=== PATIENT | female | born 1960 | race Caucasian/White ===

== ENCOUNTER 2016-12-18 09:33 | Inpatient (IN) | payer BC, OTHER ==
[~2016-12-18] VITALS: Ht 152.4 cm; Wt 75.7 kg
[~2016-12-18 09:33] MED LIST: RABE20TA5 PO
[2016-12-18 09:35] VITALS: BP_SYST 132
--- NOTE | 2016-12-18 09:38 | NUR ---
Pt report received from ONI [place]. Pt c/o intermittent C/P that radiates down Left arm x 1 week. Pt states that she also feels hoarse during these occurences. No SOB.
--- NOTE | 2016-12-18 09:38 | NUR ---
Arrived as walk in with 5/10 chest tightness since Tuesday. States that she has had cough and changes in her voice. Placed in room 2. Placed on desk monitor, blood pressure machine and pulse oximeter. To gown for exam. Side rails up. Report given to Niall BUNN.
[2016-12-18] MEDS ORDERED: NITROGLYCERIN 1 INCH (GM) OINT. TP ONE (09:45)
[2016-12-18] MEDS ORDERED: ASPIRIN 81 MG TAB.CHEW PO ONE (09:45)
--- NOTE | 2016-12-18 09:45 | NUR ---
Dr. Krueger at bedside to assess pt.
[2016-12-18 10:08] LABS: BASOPHILS % (AUTO) 0.7 % (0.0-2.0); EOSINOPHILS # (AUTO) 0.1 K/uL (0.0-0.4); EOSINOPHILS % (AUTO) 1.7 % (0.0-4.0); HEMATOCRIT 41.2 % (36-48); HEMOGLOBIN 13.4 g/dL (12.0-16.0); LYMPHOCYTES # (AUTO) 1.3 K/uL (1.0-5.5); LYMPHOCYTES % (AUTO) 23.7 % (20.5-51.5); MEAN CORPUSCULAR HEMOGLOBIN 28 pg (27-31); MEAN CORPUSCULAR HGB CONC 33 % (32-36); MEAN CORPUSCULAR VOLUME 87 fL (79.0-98.0); MONOCYTES # (AUTO) 0.3 K/uL (0.0-1.0); MONOCYTES % (AUTO) 5.7 % (1.7-9.3); NEUTROPHILS # (AUTO) 3.9 K/uL (1.8-7.7); NEUTROPHILS % (AUTO) 68.2 % (40.0-70.0); PLATELET COUNT (AUTO) 344 K/uL (130-430); RED BLOOD CELL COUNT(AUTO) 4.76 MIL/uL (4.2-6.2); RED CELL DISTRIBUTION WIDTH 11.8 % (9.0-15.0); WHITE BLOOD COUNT (AUTO) 5.6 K/uL (4.8-10.8)
[2016-12-18 10:12] LABS: CALCIUM 8.9 mg/dL (8.4-11.0); CREATININE 0.65 mg/dL (0.55-1.30); POTASSIUM 3.6 mmol/L (3.5-5.1)
[2016-12-18 10:15] LABS: INR 0.9 (0.8-1.2); PROTHROMBIN TIME 9.6 SECS (9.5-12.5)
[2016-12-18 10:17] LABS: ALBUMIN 3.6 g/dL (3.4-4.8); TOTAL BILIRUBIN 0.3 mg/dL (0.0-1.0)
[2016-12-18 10:55] LABS: BILIRUBIN,URINE NEGATIVE (NEGATIVE); BLOOD, URINE NEGATIVE (NEGATIVE); CLARITY/URINE CLEAR (CLEAR); COLOR,URINE YELLOW (YELLOW); GLUCOSE,URINE NEGATIVE (NEGATIVE); KETONES,URINE NEGATIVE (NEGATIVE); LEUKOCYTE ESTERASE ,URINE NEGATIVE (NEGATIVE); NITRITE, URINE NEGATIVE (NEGATIVE); PROTEIN URINE NEGATIVE (NEGATIVE); UROBILINOGEN,URINE 0.2 (0.2-1.0)
--- NOTE | 2016-12-18 11:04 | NUR ---
Dr. Krueger at bedside to discuss POC.
[2016-12-18] MEDS ORDERED: MORPHINE 2 MG/ML INJ. SYRINGE IVP ONE (11:15)
[2016-12-18] MEDS ORDERED: DIPHENHYDRAMINE INJ 50 MG/ML VIAL IVP ONE (11:15)
--- NOTE | 2016-12-18 11:30 | NUR ---
Pt denies c/o pain or discomfort. Family member at bedside.
[2016-12-18] MEDS ORDERED: MORPHINE 2 MG/ML INJ. SYRINGE IVP PRN ×2 (11:45→13:45)
[2016-12-18] MEDS ORDERED: NITROGLYCERIN 0.4 MG TAB.SUBL SL PRN (11:45)
[2016-12-18] MEDS ORDERED: ACETAMINOPHEN 325 MG TABLET PO PRN (11:45)
--- NOTE | 2016-12-18 11:55 | NUR ---
Patient will be admitted to care of Dr. Dong. Admitted to Tele unit. Will go to room 100B. Belongings list completed. Summary report printed. Bedside report given to ONI Schneider.
--- NOTE | 2016-12-18 12:03 | NUR ---
ADMISSION NOTE Received patient from ER via rocael, received report from KENNA BUNN. Patient admitted with diagnosis of CHEST PAIN TO R/O M.I.. Patient oriented to hospital routine, call light, toileting and safety-patient verbalized understanding.
[2016-12-18 12:10] VITALS: BP_SYST 113
[2016-12-18] MEDS ORDERED: PANTOPRAZOLE SODIUM 40 MG TAB PO ONE (12:15)
--- NOTE | 2016-12-18 12:16 | NUR ---
CONSULTATION PAGED REASON FOR CONSULTATION:CHEST PAIN WAS CONSULT CALLED?Y PERSON WHO WAS NOTIFIED:MARY CONSULTING PHYSICIAN:JAREN HUMPHREY (ALLISON KHOURY DINING ROOM HOST) CELL TENDER SPECIALTY:CARDIO CELL TENDER PHONE NUMBER:[phone] ORDERING PHYSICIAN:NIKOLE LEONARD
[2016-12-18] MEDS ORDERED: VALS80TA2 PO (12:32)
[2016-12-18] MEDS ORDERED: L.RH1CAP PO (12:32)
[2016-12-18] MEDS ORDERED: LORA10TA7 PO (12:32)
[2016-12-18] MEDS ORDERED: METO25TA3 PO (12:32)
[2016-12-18] MEDS ORDERED: SERT50TA12 PO (12:32)
--- NOTE | 2016-12-18 13:00 | NUR ---
RECEIVED PT FROM ADMIT NURSE PT STABLE ON ROOM AIR WITH NO COMPLAINT OF CHEST PAIN OR PRESSURE. I EDUCATED PT ON UNIT SAFETY AND SHE DEMONSTRATED THE ABILITY TO USE THE CALL LIGHT. PT AMBULATORY: NO FALL RISK. PT'S IS AT BEDSIDE. PT ASKED TO BE ALLOWED TO REST, SO I TURNED OFF THE LIGHTS AND CLOSED THE DOOR.
--- NOTE | 2016-12-18 13:15 | NUR ---
DR. WEI AT BEDSIDE
[2016-12-18] MEDS ORDERED: FLUTICASONE PROPIONATE 50 mCg/SPRAY 16 GM NS SCH ×2 (13:45→16:00)
[2016-12-18] MEDS ORDERED: ALPRAZolam 0.25 MG TABLET PO PRN (13:45)
[2016-12-18] MEDS: LORATADINE 10 MG TABLET PO SCH (13:45)
[2016-12-18] MEDS: SERTRALINE HCL 50 MG TABLET PO SCH (13:45)
[2016-12-18] MEDS ORDERED: CALCIUM CARBONATE 500 MG/ TAB.CHEW PO PRN (13:45)
--- NOTE | 2016-12-18 14:00 | NUR ---
SID DELAYED - WAITING FOR PHARMACY TO DELIVER IT
[2016-12-18] MEDS ORDERED: LORATADINE 10 MG TABLET PO ONE (15:00)
[2016-12-18] MEDS ORDERED: SERTRALINE HCL 50 MG TABLET PO ONE (15:00)
[2016-12-18] MEDS: PANTOPRAZOLE SODIUM 40 MG TAB PO SCH (15:00)
[2016-12-18 15:27] VITALS: BP_SYST 112
--- NOTE | 2016-12-18 16:47 | NUR ---
PAGED PAGED NIKOLE LEONARD AT [phone] SPOKE WITH BRUNA.
--- NOTE | 2016-12-18 17:00 | NUR ---
PT EDUCATION: CHHAYA I EXPLAINED THE STRESS TEST/LEXISCAN PROCEDURE WHICH IS SCHEDULED FOR TOMORROW AT 0930. PT STATED UNDERSTANDING OF NPO STATUS AFTER MIDNIGHT TONIGHT AND THAT SHE WOULD NOT BE GIVEN HER 0900 HTN MEDICATIONS UNTIL AFTER THE PROCEDURE EXCEPT IN THE CASE OF EMERGENCY HYPERTENSION
--- NOTE | 2016-12-18 18:30 | NUR ---
RN CLOSING NOTE PT IS RESTING IN BED WITH NO COMPLAINT OF PAIN. IV IS PATENT AND SALINE LOCKED, DRESSING DRY AND INTACT. PT STATED ALL HER NEEDS WERE MET DURING THE SHIFT AND THAT SHE DID NOT NEED ANYTHING AT THIS TIME.
--- NOTE | 2016-12-18 20:00 | NUR ---
Initial Notes Received patient resting in bed, awake, alert, oriented, family at bedside. Patient denies any acute distress or pain at this time. Vital signs stable. Breathing is even and unlabored on room air. IV site patent/clean/dry. Educated patient regarding use of call light for assistance and fall precautions, patient verbalized understanding. Patient verbalized understanding of NPO status post midnight for test in AM. Needs addressed. Call light in hand, will continue to monitor.
[2016-12-18 20:07] VITALS: BP_SYST 122
[2016-12-18] MEDS ORDERED: METOPROLOL TARTRATE 50 MG TABLET PO SCH (21:00)
[2016-12-18] MEDS: METOPROLOL TARTRATE 25 MG TABLET PO SCH (21:19)
--- NOTE | 2016-12-18 22:00 | NUR ---
Rounds Patient resting in bed, awake. Patient denies any acute distress or pain at this time. Breathing is even and unlabored. Needs addressed. Call light in hand, will continue to monitor.
[2016-12-19] VITALS: BP_SYST 133
--- NOTE | 2016-12-19 | NUR ---
Rounds Patient resting with eyes closed, easily aroused. Patient denies any acute distress or pain. Reminded patient of NPO status, patient verbalized understanding. Patient denies any needs. Call light in hand, will continue to monitor.
--- NOTE | 2016-12-19 02:00 | NUR ---
Rounds Patient resting in bed with eyes closed. No acute distress noted, breathing is even and unlabored. Call light in hand, will continue to monitor.
[2016-12-19 02:30] LABS: C-REACTIVE PROTEIN QUANT 0.8 mg/dL (0-0.5)
--- NOTE | 2016-12-19 04:00 | NUR ---
Rounds Patient resting in bed with eyes closed, easily aroused. Patient denies any acute distress or pain at this time. Breathing is even and unlabored. Patient denies any needs. Call light in hand, will continue to monitor.
--- NOTE | 2016-12-19 06:30 | NUR ---
Closing Notes Patient resting in bed with eyes closed, easily aroused. Patient denies any acute distress or pain at this time. Breathing is even and unlabored. IV site patent/clean/dry, no S/S infection/infiltration noted. Needs addressed throughout shift. Call light in hand, fall precautions in place. Will continue to monitor for changes and safety, and endorse all patient care/needs to oncoming nurse. Patient remains NPO since midnight for stress test today.
[2016-12-19 08:00] VITALS: BP_SYST 126
--- NOTE | 2016-12-19 08:00 | NUR ---
RN OPENING NOTE PT PRESENTED WITH CHEST PAIN. SHE IS A/O X 4, SPEAKS FRISIAN, AND IS STABLE ON ROOM AIR WITH NO COMPLAINT OF CHEST PAIN OR PRESSURE. I EDUCATED PT ON UNIT SAFETY AND SHE DEMONSTRATED THE ABILITY TO USE THE CALL LIGHT. PT IS AMBULATORY AND IS NOT A FALL RISK. PT HAS BEEN NPO SINCE 0000 AND IS PREPARED FOR THE LEXISCAN SCHEDULED FOR EARLY THIS MORNING.
--- NOTE | 2016-12-19 08:10 | NUR ---
PT TRANSFERRED TO NUCLEAR MEDICINE FOR HER SCHEDULED LEXISCAN
[2016-12-19] MEDS ORDERED: REGADENOSON 0.4 MG/5 ML SYRINGE IVP ONE (09:00)
[2016-12-19] MEDS ORDERED: VALSARTAN 80 MG TABLET (DIOVAN) PO SCH (09:00)
[2016-12-19] MEDS ORDERED: ASPIRIN 81 MG TAB.CHEW PO SCH (09:00)
--- NOTE | 2016-12-19 10:00 | NUR ---
PT RETURNED FROM NUCLEAR MEDICINE VS STABLE ON ROOM AIRM 0900 PO MEDS ADMINISTERED AT THIS TIME
[2016-12-19] MEDS: PANTOPRAZOLE SODIUM 40 MG TAB PO SCH (10:11)
[2016-12-19] MEDS: METOPROLOL TARTRATE 25 MG TABLET PO SCH (10:12)
[2016-12-19] MEDS: SERTRALINE HCL 50 MG TABLET PO SCH (10:13)
[2016-12-19] MEDS: LORATADINE 10 MG TABLET PO SCH (10:13)
--- NOTE | 2016-12-19 10:50 | NUR ---
PT TRANSFERRED TO NUCLEAR MEDICINE FOR CONTINUATION OF LEXISCAN PROCEDURE.
--- NOTE | 2016-12-19 11:25 | NUR ---
PT RETURNED TO ROOM VS STABLE WITH NO COMPLAINT OF DISCOMFORT.
[2016-12-19 12:27] VITALS: BP_SYST 128
[2016-12-19] MEDS ORDERED: ATOR10TA68 PO (13:19)
[2016-12-19] MEDS ORDERED: ASA81 PO (13:19)
[2016-12-19] MEDS ORDERED: ALPR0.2583 PO (13:19)
--- NOTE | 2016-12-19 14:00 | NUR ---
RN ROUNDS PT IS SITTING UP IN BED TALKING TO HER FAMILY WITH NO COMPLAINT OF DISCOMFORT. I EXPLAINED THAT SHE WILL BE ABLE TO RETURN HOME TODAY IF HER LEXISCAN RESULTS ARE NEGATIVE.
[2016-12-19 15:20] VITALS: BP_SYST 129
[2016-12-19] MEDS ORDERED: METO50TA7 PO (15:47)
--- NOTE | 2016-12-19 16:05 | NUR ---
D/C Patient Patient given medication reconciliation form and D/C instructions. Exit Care provided. Patient verbalized understanding. MD discussed with patient the results and treatment provided. Ambulatory with steady gait for discharge to home. Patient in stable condition, ID band removed. IV catheter removed, intact and dressing applied, no active bleeding. Pt sent home with written prescriptions as well as a note to excuse her from work until 12/22/16. patient educated on follow-up appointment with Dr. Dong. All belongings sent with patient.
[2016-12-19 16:06] VITALS: BP_SYST 116
== END 2016-12-19 16:05 | disposition home or self-care (01) | DRG 313 ==
LOC: SED 09:33 → STU 11:40
PROVIDERS: ADMIT Internal Medicine; ATTEND Internal Medicine
DX: R07.89 Other chest pain (principal); I10 Essential (primary) hypertension; J30.9 Allergic rhinitis, unspecified; E78.5 Hyperlipidemia, unspecified; K21.9 Gastro-esophageal reflux disease without esophagitis; K58.9 Irritable bowel syndrome, unspecified; F41.9 Anxiety disorder, unspecified; M54.2 Cervicalgia; M79.602 Pain in left arm; E66.9 Obesity, unspecified; Z68.32 Body mass index [BMI] 32.0-32.9, adult; Z79.899 Other long term (current) drug therapy
CPT/HCPCS: 36415; 71010; 72050-TC; 80053; 80061; 81003; 81025; 83036; 83735-TC; 83880; 84484; 85025; 85610-TC; 86140; 93005; 93017; 93306; 96374; 96375; 99285; A9500; J1200; J2270; J2785

== ENCOUNTER 2019-05-10 09:17 | Emergency (ER) | payer OTHER ==
[~2019-05-10] VITALS: Ht 152.4 cm; Wt 77.1 kg
[~2019-05-10 09:17] MED LIST changes: +ALPR0.25 PO; +ASA81 PO; +ATOR10TA68 PO; +L.RH1CAP PO; +LORA10TA7 PO; +METO50TA7 PO; -RABE20TA5 PO; +SERT50TA12 PO; +VALS80TA2 PO
--- NOTE | 2019-05-10 09:25 | NUR ---
Patient to ER bed 4 to gown for evaluation. Side rails up.
[2019-05-10 09:33] VITALS: BP_SYST 120
--- NOTE | 2019-05-10 09:35 | NUR ---
Patient presented to ER C/O abdominal pain. Patient A&Ox4, ambulatory to ER, skin pink and warm, pain 6/10, nausea, fever, denies D/V. Patient states she has abdominal pain since yesterday, PT reports BM yesterday & today, no PO intake today, chills and nausea today. Patient states she has a hx of divirticulitis; self treated with prune juice yesterday. PT also report HX HTN & high cholesterol.
--- NOTE | 2019-05-10 09:40 | NUR ---
ERIC Curiel at bedside examining patient.
[2019-05-10] MEDS ORDERED: IBUPROFEN 600 MG TABLET PO ONE (09:45)
[2019-05-10] MEDS ORDERED: NACL 0.9% 1,000 ML IV ONE ×2 (09:45→11:45)
[2019-05-10] MEDS ORDERED: ONDANSETRON HCL 4 MG/2 ML VIAL IVP ONE (09:45)
--- NOTE | 2019-05-10 10:15 | NUR ---
# 20 gauge angiocath placed to right hand. Use of asceptic technique. Opsite placed over site. Blood return noted. Blood for lab drawn from site. Flushed with 10 cc of normal saline. No evidence of infiltration noted. Patient tolerated well. Medicated per MD orders. IVF infusing with no s/s of infiltration at this time. Will cont to monitor
--- NOTE | 2019-05-10 10:15 | NUR ---
Note undone in EDM - 05/10/19 at 1125 by SOFÍA # 20 gauge angiocath placed to left hand. Use of asceptic technique. Opsite placed over site. Blood return noted. Blood for lab drawn from site. Flushed with 10 cc of normal saline. No evidence of infiltration noted. Patient tolerated well. Medicated per MD orders. IVF infusing with no s/s of infiltration at this time. Will cont to monitor
--- NOTE | 2019-05-10 10:25 | NUR ---
Justice rivera in [facility] - 05/10/19 at 1038 by SDEDTD Patient to radiology via Tammy with staff.
--- NOTE | 2019-05-10 10:25 | NUR ---
Patient to radiology via [place] with staff.
[2019-05-10 10:37] LABS: BILIRUBIN,URINE NEGATIVE (NEGATIVE); BLOOD, URINE NEGATIVE (NEGATIVE); CLARITY/URINE CLEAR (CLEAR); COLOR,URINE YELLOW (YELLOW); GLUCOSE,URINE NEGATIVE (NEGATIVE); KETONES,URINE NEGATIVE (NEGATIVE); LEUKOCYTE ESTERASE ,URINE NEGATIVE (NEGATIVE); NITRITE, URINE NEGATIVE (NEGATIVE); PROTEIN URINE NEGATIVE (NEGATIVE); UROBILINOGEN,URINE 0.2 (0.2-1.0)
--- NOTE | 2019-05-10 10:37 | NUR ---
Justice rivera in [facility] - 05/10/19 at 1039 by SDEDTD Patient to bed 4 to [facility] for evaluation. Side rails up.
[2019-05-10 10:41] LABS: EOSINOPHILS % (AUTO) 0.2 % (0.0-4.0); HEMATOCRIT 39.4 % (36-48); HEMOGLOBIN 13.3 g/dL (12.0-16.0); LYMPHOCYTES # (AUTO) 0.2 K/uL (1.0-5.5); LYMPHOCYTES % (AUTO) 3.3 % (20.5-51.5); MEAN CORPUSCULAR HEMOGLOBIN 29 pg (27-31); MEAN CORPUSCULAR HGB CONC 34 % (32-36); MEAN CORPUSCULAR VOLUME 87 fL (79.0-98.0); MONOCYTES % (AUTO) 0.3 % (1.7-9.3); NEUTROPHILS # (AUTO) 6.9 K/uL (1.8-7.7); NEUTROPHILS % (AUTO) 96.2 % (40.0-70.0); PLATELET COUNT (AUTO) 231 K/uL (130-430); RED BLOOD CELL COUNT(AUTO) 4.55 MIL/uL (4.2-6.2); RED CELL DISTRIBUTION WIDTH 13.1 % (9.0-15.0); WHITE BLOOD COUNT (AUTO) 7.2 K/uL (4.8-10.8)
[2019-05-10 10:51] LABS: CREATININE 0.85 mg/dL (0.55-1.30)
[2019-05-10 10:56] LABS: ALBUMIN 3.7 g/dL (3.4-4.8); TOTAL BILIRUBIN 0.4 mg/dL (0.0-1.0)
[2019-05-10 11:00] LABS: POTASSIUM 3.7 mmol/L (3.5-5.1)
[2019-05-10] MEDS ORDERED: CIPROFLOXACIN HCL 500 MG TABLET PO ONE (11:15)
[2019-05-10] MEDS ORDERED: metroNIDAZOLE 500 MG TABLET PO ONE (11:15)
[2019-05-10] MEDS ORDERED: ACETAMINOPHEN 500 MG TABLET PO ONE (11:45)
--- NOTE | 2019-05-10 11:46 | NUR ---
Medicated per MD orders. IVF infusing with no s/s of infiltration at this time. Will cont to monitor
[2019-05-10 12:57] VITALS: BP_SYST 101
--- NOTE | 2019-05-10 12:57 | NUR ---
Patient given written and verbal discharge instructions and verbalizes understanding. ER MD discussed with patient the results and treatment provided. Patient in stable condition. ID arm band removed. IV catheter removed intact and dressing applied, no active bleeding. Rx of CIPRO & FLAGYL given. Patient educated on pain management and to follow up with PMD. Pain Scale 3/10 TOLERABLE FOR PATIENT[]. Opportunity for questions provided and answered. Medication side effect fact sheet provided.
== END 2019-05-10 12:57 | disposition home or self-care (01) ==
LOC: SED 09:17
DX: K57.92 Diverticulitis of intestine, part unspecified, without perforation or abscess without bleeding (principal); I10 Essential (primary) hypertension; Z79.899 Other long term (current) drug therapy
CPT/HCPCS: 36415; 71045; 74176; 80053; 81003; 83605; 85025; 86710; 87040; 87086; 87186; 96374; 99284; J2405; J7030

== ENCOUNTER 2019-05-11 20:29 | Emergency (ER) | payer OTHER ==
[~2019-05-11] VITALS: Ht 152.4 cm; Wt 77.1 kg
[2019-05-11 20:29] VITALS: BP_SYST 116
--- NOTE | 2019-05-11 20:29 | NUR ---
Pt from home, placed to ER bed 05, to gown. Pt c/o fever, chills, shivering, H/A since yesterday. Pt states that she took Tylenol 500 mg PO at 1900 and Ibuprofen 400 mg at 1500 with no relief. Family member at bedside.
--- NOTE | 2019-05-11 20:32 | NUR ---
Dr. Evangelista at bedside.
[2019-05-11] MEDS ORDERED: ACETAMINOPHEN 500 MG TABLET PO ONE (20:45)
[2019-05-11] MEDS ORDERED: KETOROLAC TROMETHAMINE 30 MG VIAL IVP ONE (20:45)
[2019-05-11] MEDS ORDERED: metroNIDAZOLE 500 mg/NS 100 ML IV ONE (20:45)
[2019-05-11] MEDS ORDERED: NACL 0.9% 1,000 ML IV ONE (20:45)
[2019-05-11] MEDS ORDERED: ONDANSETRON HCL 4 MG/2 ML VIAL IVP ONE (20:45)
--- NOTE | 2019-05-11 21:00 | NUR ---
# 20 gauge angiocath placed to RHA. Use of asceptic technique. Opsite placed over site. Blood return noted. Blood for lab drawn from site. Flushed with 10 cc of normal saline. No evidence of infiltration noted. Patient tolerated well.
--- NOTE | 2019-05-11 21:02 | NUR ---
Pt BIB family to ED C/O intermittent fevers in the 100F's, chills/shivering, and a constant severe headache. Patient states she has an appointment with her PMD in 3 days. No other complaints and or injuries noted VSS no s/s of acute distress Resting on gurney rails up
[2019-05-11 21:45] LABS: BASOPHILS % (AUTO) 0.2 % (0.0-2.0); EOSINOPHILS # (AUTO) 0.1 K/uL (0.0-0.4); EOSINOPHILS % (AUTO) 1.1 % (0.0-4.0); HEMATOCRIT 33.6 % (36-48); HEMOGLOBIN 11.4 g/dL (12.0-16.0); LYMPHOCYTES # (AUTO) 0.2 K/uL (1.0-5.5); LYMPHOCYTES % (AUTO) 3.3 % (20.5-51.5); MEAN CORPUSCULAR HEMOGLOBIN 29 pg (27-31); MEAN CORPUSCULAR HGB CONC 34 % (32-36); MEAN CORPUSCULAR VOLUME 87 fL (79.0-98.0); MONOCYTES # (AUTO) 0.1 K/uL (0.0-1.0); MONOCYTES % (AUTO) 2.5 % (1.7-9.3); NEUTROPHILS # (AUTO) 5.4 K/uL (1.8-7.7); NEUTROPHILS % (AUTO) 92.9 % (40.0-70.0); PLATELET COUNT (AUTO) 163 K/uL (130-430); RED BLOOD CELL COUNT(AUTO) 3.87 MIL/uL (4.2-6.2); RED CELL DISTRIBUTION WIDTH 13.2 % (9.0-15.0); WHITE BLOOD COUNT (AUTO) 5.8 K/uL (4.8-10.8)
[2019-05-11 21:55] LABS: CALCIUM 8.1 mg/dL (8.4-11.0); CREATININE 0.69 mg/dL (0.55-1.30)
[2019-05-11 22:00] LABS: ALBUMIN 2.9 g/dL (3.4-4.8)
--- NOTE | 2019-05-11 22:08 | NUR ---
VSS no s/s of acute distress Resting on gurney rails up
[2019-05-11] MEDS ORDERED: POTASSIUM CHLORIDE 20 MEQ TAB.PRT.SR PO ONE (22:30)
[2019-05-11 23:40] VITALS: BP_SYST 137
--- NOTE | 2019-05-11 23:40 | NUR ---
Patient given written and verbal discharge instructions and verbalizes understanding. ER MD discussed with patient the results and treatment provided. Patient in stable condition. ID arm band removed. IV catheter removed intact and dressing applied, no active bleeding. Rx of Zofran, Kcl TAB, and Colace given. Patient educated on pain management and to follow up with PMD. Pain Scale 0/10 Opportunity for questions provided and answered. Medication side effect fact sheet provided.
== END 2019-05-11 23:40 | disposition home or self-care (01) ==
LOC: SED 20:29
DX: K57.00 Diverticulitis of small intestine with perforation and abscess without bleeding (principal); R10.32 Left lower quadrant pain; E87.6 Hypokalemia; I10 Essential (primary) hypertension; Z79.899 Other long term (current) drug therapy; Z79.82 Long term (current) use of aspirin; Z87.19 Personal history of other diseases of the digestive system
CPT/HCPCS: 36415; 80053; 85025; 96365; 96375; 99283; J1885; J2405; J3490; J7030